=== PATIENT | female | born 1975 | race African-American/Black ===

== ENCOUNTER 2018-08-17 19:18 | Emergency (ER) | payer BC, SELFPAY ==
[2018-08-17] MEDS ORDERED: diphenhydrAMINE 25 MG CAP ONE (20:17)
[2018-08-17] MEDS ORDERED: Famotidine 20 MG TAB ONE (20:17)
[2018-08-17] MEDS ORDERED: Dexamethasone 4 mg/ml Vial ONE (20:17)
== END 2018-08-17 20:23 | disposition home or self-care (01) ==
LOC: ERS 19:18
DX: T63.481A Toxic effect of venom of other arthropod, accidental (unintentional), initial encounter (principal)
CPT/HCPCS: 99282; J1100; Q0163